=== PATIENT | male | born 1970 | race Two or more races ===

== ENCOUNTER 2018-09-10 18:36 | Emergency (ER) | payer OTHER ==
[2018-09-10 18:39] VITALS: BP 164/71; PULSE 75; TEMP 97.6; BMI 23.5
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
[2018-09-10] MEDS ORDERED: KETOROLAC TROMETHAMINE 30 MG/1 ML VIAL IM ONE (19:17)
[2018-09-10] MEDS ORDERED: CYCLOBENZAPRINE HCL 10 MG TABLET (FP) PO ONE (19:17)
[2018-09-10] MEDS ORDERED: KETOROLAC TROMETHAMINE 30 MG/1 ML VIAL ONE (19:34)
[2018-09-10] MEDS ORDERED: CYCLOBENZAPRINE HCL 10 MG TABLET (FP) ONE (19:34)
== END 2018-09-10 19:44 | disposition home or self-care (01) ==
LOC: JERFT 18:36
PROC: 2W25X4Z Dressing of Back using Bandage (ICD-10-PCS; principal; 2018-09-10)
DX: M54.5 Low back pain (principal); M79.605 Pain in left leg; T21.04XA Burn of unspecified degree of lower back, initial encounter; T31.0 Burns involving less than 10% of body surface; Y63.5 Inappropriate temperature in local application and packing
CPT/HCPCS: 16020; 99281-25